=== PATIENT | female | born 1990 | race Caucasian/White ===

== ENCOUNTER 2016-10-30 07:02 | Day surgery (SDC) | payer MEDICAID ==
[2016-10-30] MEDS: Dextrose 5%-Lactated Ringers 1,000 ML IV SCH ×2 (07:59→11:01)
[2016-10-30] MEDS ORDERED: Glycopyrrolate 0.2 MG/ML 2 ML SYRINGE IVPUSH ONE (08:00)
[2016-10-30] MEDS ORDERED: Propofol 200 MG/20 ML SDV ONE (10:29)
[2016-10-30] MEDS ORDERED: fentaNYL 100 MCG/2 ML SDV ONE (10:29)
[2016-10-30] MEDS ORDERED: Midazolam 1 MG/ML 2 ML SDV ONE (10:29)
[2016-10-30] MEDS ORDERED: Pantoprazole 40 MG Vial IVPUSH ONE (10:50)
[2016-10-30 12:06] VITALS: BP 118/71
--- NOTE | 2016-10-31 10:52 | OR ---
DATE OF PROCEDURE: 10/30/2016 PREOPERATIVE DIAGNOSIS: Recent hematemesis. POSTOPERATIVE DIAGNOSIS: Recent hematemesis associated with ulcerated gastroesophageal reflux disease. OPERATIVE PROCEDURE: Upper GI endoscopy with: 1. Biopsy of esophagogastric junction. 2. Biopsies of antrum for CLOtest. ANESTHESIA: IV sedation. INDICATION FOR PROCEDURE: A 26-year-old female presenting last week with some episodes of hematemesis, started on omeprazole, has not had further hematemesis over the weekend. She continued to have some ongoing heartburn symptoms. She has a long history of heartburn symptoms as well as some intermittent bilious emesis. Plan is to proceed with an upper GI endoscopy with biopsies as indicated. Potential risks including bleeding and perforation were discussed, and the patient wishes to proceed. DETAILS OF PROCEDURE: The patient was taken to the operating room and placed in a left lateral decubitus position. IV sedation was administered, after which the upper GI endoscope was passed orally through the length of the esophagus into the stomach with retroflexion view of the fundus, thereafter through the pyloric channel and into the proximal duodenum. Findings included normal hypopharynx, larynx, upper esophageal sphincter, and esophageal body. At the EG junction, there was a small hiatal hernia with EG junction being essentially a wide open straight tube. With this, there were 3 linear ulcers, which were presently covered with fibrinous exudate. This areas were viable, simply rubbing the scope on the surface resulted in some oozing. There were no stricturing or gross evidence of neoplasia. The remainder of the stomach showed some very mild redness within the antrum, but otherwise no significant pathology and the pyloric channel and proximal duodenum were unremarkable at the level of the junction of the 3rd and 4th duodenal portions. At this point, biopsies were obtained from the antrum and sent for CLOtest for H. pylori. Multiple biopsies were then obtained from the esophagogastric junction, sent for histologic evaluation. No bleeding from the biopsy sites was seen, and the procedure then concluded. The patient was given some additional IV Protonix in the recovery room. We will see her back on this coming Sunday. Given her age, she may benefit from the surgical antireflux procedure, so as to avoid essentially a lifelong time problem requiring medical management. We will discuss these findings and operative options this coming Sunday. Carmelo Pagan MD /[id number]
== END 2016-10-30 12:25 | disposition home or self-care (01) ==
LOC: JP.SDS 07:02
PROVIDERS: ATTEND Surgery
DX: K22.10 Ulcer of esophagus without bleeding (principal); Z91.040 Latex allergy status; F17.210 Nicotine dependence, cigarettes, uncomplicated
CPT/HCPCS: 43239; 87081; C9113; J2250; J2704; J3010; J7042; 88305; 88312

== ENCOUNTER 2016-11-03 06:58 | Inpatient (IN) | payer MEDICAID ==
[2016-11-03] MEDS ORDERED: Neostigmine Methylsulfate 1 MG/ML 5 ML Syringe ONE (07:07)
[2016-11-03] MEDS ORDERED: Ondansetron 4 MG/2 ML SDV ONE (07:07)
[2016-11-03] MEDS ORDERED: Propofol 200 MG/20 ML SDV ONE (07:07)
[2016-11-03] MEDS ORDERED: Succinylcholine/Normal Saline 200 MG/10 ML Syringe ONE (07:07)
[2016-11-03] MEDS ORDERED: Rocuronium 50 MG/5 ML Vial ONE (07:07)
[2016-11-03] MEDS ORDERED: fentaNYL 250 MCG/5 ML SDV ONE ×3 (07:07→09:14)
[2016-11-03] MEDS ORDERED: Dexamethasone 4 MG/ML SDV ONE (07:07)
[2016-11-03] MEDS ORDERED: HYDROmorphone/Normal Saline 15 MG/30 ML PCA IV PRN (07:12)
[2016-11-03] MEDS ORDERED: Naloxone 0.4 MG/ML SDV IVPUSH PRN (07:12)
[2016-11-03] MEDS: Dextrose 5%-Lactated Ringers 1,000 ML IV SCH ×3 (07:52→16:26)
[2016-11-03] MEDS ORDERED: Albuterol/Ipratropium 3.0-0.5 MG/3 ML Neb Soln NEB ONE (08:30)
[2016-11-03] MEDS ORDERED: ceFAZolin 2 GM in Premix Bag 1 BAG IV ONE (08:30)
[2016-11-03] MEDS ORDERED: ceFAZolin 2 GM in Sodium Chloride 0.9% 50 ML IV ONE (08:30)
[2016-11-03] MEDS ORDERED: hydrOXYzine HCl 50 MG/ML SDV IM ONE (09:55)
[2016-11-03] MEDS ORDERED: Ondansetron 4 MG/2 ML SDV IVPUSH PRN (11:08)
[2016-11-03] MEDS ORDERED: ALPRAZolam 0.5 MG Tab PO PRN (11:12)
[2016-11-03] MEDS ORDERED: Cyclobenzaprine 10 MG Tab PO PRN (11:12)
[2016-11-03] MEDS ORDERED: Loratadine 10 MG Tab PO PRN (11:14)
[2016-11-03] MEDS ORDERED: Albuterol 8 GM Inhaler INH PRN (11:14)
[2016-11-03] MEDS ORDERED: Pantoprazole 40 MG Vial IV SCH (11:30)
[2016-11-03] MEDS: Metoclopramide 10 MG/2 ML SDV IVPUSH SCH ×2 (12:06→17:52)
[2016-11-03] MEDS: Naproxen 250 MG Tab PO SCH ×2 (12:06→22:38)
[2016-11-03] MEDS: ceFAZolin 2 GM in Sodium Chloride 0.9% 50 ML IV SCH (16:00)
[2016-11-04] MEDS: ceFAZolin 2 GM in Sodium Chloride 0.9% 50 ML IV SCH (00:16)
[2016-11-04] MEDS: Metoclopramide 10 MG/2 ML SDV IVPUSH SCH ×2 (00:16→05:51)
[2016-11-04] MEDS: Dextrose 5%-Lactated Ringers 1,000 ML IV SCH (05:54)
[2016-11-04] MEDS ORDERED: HYDROmorphone 2 MG Tab PO PRN (06:57)
[2016-11-04] MEDS ORDERED: Acetaminophen/oxyCODONE 325-5 MG Tab PO PRN (07:53)
[2016-11-04 08:08] VITALS: BP 105/56
[2016-11-04] MEDS: Naproxen 250 MG Tab PO SCH (08:38)
[2016-11-04] MEDS ORDERED: Enoxaparin 120 MG/0.8 ML Syringe SUBCUT ONE (12:36)
[2016-11-04] MEDS ORDERED: Sodium Chloride 0.9% 1,000 ML IV SCH (12:45)
--- NOTE | 2016-11-05 14:23 | DISCH ---
FINAL DIAGNOSES: 1. Gastroesophageal reflux disease refractory to medical management associated with large paraesophageal diaphragmatic hernia. 2. Mediastinal lipoma. 3. Attention-deficit hyperactivity disorder with anxiety. 4. Opioid dependence. OPERATIVE PROCEDURE: This was done on 11/03, laparoscopic Donnie fundoplication with repair of paraesophageal diaphragmatic hernia with mesh and excision of mediastinal lipoma. SUMMARY: This is a 26-year-old who is presenting with gastroesophageal reflux disease. This was associated with a complicated presentation including hematemesis, and earlier this week, was noted to have multiple esophageal ulcers. Given this and the patient's desire not to need long-term medication, the patient underwent a Donnie fundoplication which showed her to have a very large diaphragmatic hernia and repaired with augmentation with mesh along with excision of mediastinal lipoma. Postoperatively, she did well, taking in liquids without difficulty. She will be discharged home on her usual medication list plus Percocet 5/325 mg 1 to 2 tablets q.4 hours p.r.n. pain, #40. Should be following up with Dr. Pagan in [facility] on 11/15/2016. She is instructed to be on a full liquid diet until Sunday, November 17, and then progress to soft solids as tolerated.
--- NOTE | 2016-11-06 13:16 | OR ---
DATE OF PROCEDURE: 11/03/2016 PREOPERATIVE DIAGNOSIS: Gastroesophageal reflux disease refractory to medical management. POSTOPERATIVE DIAGNOSES: 1. Gastroesophageal reflux disease refractory to medical management associated with large paraesophageal diaphragmatic hernia. 2. Mediastinal lipoma. OPERATIVE PROCEDURE: 1. Laparoscopic Donnie fundoplication with repair of paraesophageal diaphragmatic hernia with mesh (51861). 2. Excision of mediastinal lipoma (63936). ANESTHESIA: General. AUTO RADIATOR SPECIALIST: Kassy Andino PA-C. INDICATION FOR PROCEDURE: This is a 26-year-old female presenting with some hematemesis. Upper endoscopy obtained earlier this week showed an active esophagitis with several linear ulcers and at that point covered with fibrinous exudate. This is present despite ongoing medical management. After discussion of the treatment options, plan is to proceed with a Donnie fundoplication. Potential risks including bleeding, infection, and injury to the surrounding area of possible problems with fundoplication such as dysphagia, gas-bloat syndrome, disorders in gastric emptying rate, as well as possibility of cardiopulmonary, septic, or hemorrhagic complications leading to were discussed, and the patient wishes to proceed. DETAILS OF PROCEDURE: The patient was taken to the operating room and after general endotracheal anesthesia was induced, was placed in a lithotomy position. Jauregui catheter was inserted, which was removed at the end of the procedure, and the abdomen was prepped and draped. At 15 cm inferior, 5 cm left of xiphoid process, transverse incision was made with peritoneal cavity under direct vision with Optiview trocar and inflated 15 mmHg pressure of CO2. Laparoscope was then reinserted. No underlying trocar insertion site injuries were seen. Following this, 4 additional trocars were placed across the upper mid abdomen. General exploration was undertaken. Upon elevation of the liver, the patient noted to have a large paraesophageal diaphragmatic hernia. This hernia extended paraesophageal component with it with prolapse of the stomach in a plane anterior to the course of the esophagus along with some omentum into the area anterior to the esophagus. The hernia was reduced at this point. The peritoneum at the edge of the diaphragm was incised to the right, then anterior and then to left of the EG junction. This was reflected downward. The esophagus was dissected away from the crura on each side and the retroesophageal window was constructed. Loretto drain was placed around and at that point the soft tissue attachments to the esophagus were taken down with Harmonic scalpel and delivered intraabdominal esophageal length of around 5 cm was accomplished without traction out the Loretto drain. The crural repair was accomplished posteriorly with a series of 0 Ethibond sutures reinforced with PTFE pledget. During course of the dissection, the mediastinal lipoma was encountered and excised to facilitate more adequate repair. Because of the size of the crural defect, Phasix mesh was used to augment the repair. This was cut such that it would lay across the crural repair posteriorly then along the edges of the esophagus on each side, then once this was cut and placed, it was then fixed in position with some titanium tacking screws. At this point, the omentum was then taken down from the greater curvature with Harmonic scalpel. This dissection then continued upward and divided in the short gastric vessels including the highest and posterior short gastric vessels. Once that area was well freed up, the fundus was retrieved through the retroesophageal window and the pump house engineer then placed a guidewire orally through the esophagus and into the stomach and over this, a 54-Pashto Savary dilator was positioned over the dilator and then a 3-stitch, 2 cm fundoplication was accomplished with 0 Ethibond sutures with reinforced PTFE pledgets. Each of these sutures included a bite of the underlying esophagus on each side of the fundoplication was then also then tacked up to the diaphragm with the same stitch pledget combination to help prevent it from slipping downward. At that point, the dilator and wire were removed and the fundoplication was inspected and found to be satisfactory and loose. No further problems were noted. Trocars removed. The peritoneal cavity is inflated. The fascia at the 12 mm site was closed with 0 Vicryl stitch and the skin with 6-0 Vicryl skin stitch. Physician marketing operations assistant, Kassy Andino, played an essential role in assisting in this case, helping to position the patient, retract structures as needed, as well as suturing and cutting sutures when indicated. Her presence improved patient safety and decreased operative time. Carmelo Pagan MD /[id number]
== END 2016-11-04 09:45 | disposition home or self-care (01) | DRG 327 ==
LOC: UNDOADMIN 06:58 → JP.MS 06:58 → JP.SDS 06:58 → EDSTATUS 10:00 → JP.2SS 10:30 → JP.MS 10:30
PROVIDERS: ADMIT Surgery; ATTEND Surgery
PROC: 0BUS4JZ (ICD-10-PCS; principal; 2016-11-03)
PROC: 0DV44ZZ Restriction of Esophagogastric Junction, Percutaneous Endoscopic Approach (ICD-10-PCS; principal; 2016-11-03)
PROC: 0WBC4ZX Excision of Mediastinum, Percutaneous Endoscopic Approach, Diagnostic (ICD-10-PCS; principal; 2016-11-03)
PROC: 0BUR4JZ (ICD-10-PCS; principal; 2016-11-03)
DX: K21.9 Gastro-esophageal reflux disease without esophagitis (principal); K92.0 Hematemesis; F11.20 Opioid dependence, uncomplicated; K44.9 Diaphragmatic hernia without obstruction or gangrene; D17.4 Benign lipomatous neoplasm of intrathoracic organs; F41.9 Anxiety disorder, unspecified; F17.210 Nicotine dependence, cigarettes, uncomplicated; Z71.51 Drug abuse counseling and surveillance of drug abuser
CPT/HCPCS: 36415; 80048; 85027; 88304; 94762; A9270-GY; C1781; C9113; J0690; J1100; J1170; J2405; J2704; J2765; J3010; J3410; J7042; J7050; J7620

== ENCOUNTER 2016-11-17 18:57 | Emergency (ER) | payer MEDICAID ==
--- NOTE | 2016-11-17 19:42 | EDM.PDOC ---
ED HPI GENERAL MEDICAL PROBLEM - General Chief Complaint: Gastrointestinal Problem Stated Complaint: STOMACH PAIN HAD GASTRO Time Seen by Provider: 11/17/16 19:37 Source of Information: Reports: Patient, Old records, RN notes reviewed History Limitations: Reports: No limitations - History of Present Illness INITIAL COMMENTS - FREE TEXT/NARRATIVE: 26-year-old female presents emergency department for a complaint of abdominal pain she is postop day 7 from a Donnie she is currently out of her current Percocet she has just been using Tylenol she started solid food today she states the pain was worse after solid food denies any nausea vomiting shortness of breath chest pain or fevers positive for flatus Upper abdomen Pain Score (Numeric/FACES): 5 - Related Data Allergies Allergy/AdvReac Type Severity Reaction Status Date / Time Latex, Natural Rubber Allergy Unknown Hives Verified 11/03/16 07:16 Home Meds: Home Meds Albuterol Sulfate [Albuterol Sulfate HFA] 1 - 2 puff IH Q4HR PRN 03/25/14 [ History] Albuterol [Proventil Neb Soln] 1 ampule NEB Q4HRRT PRN 03/25/14 [History] Acetaminophen [Tylenol Extra Strength] 1,000 mg PO QID PRN 02/26/16 [History] Omeprazole Magnesium [Prilosec Otc] 20 mg PO DAILY 11/03/16 [History] Ondansetron [IMW: Ondansetron ODT] 4 mg PO Q6H 11/03/16 [History] ALPRAZolam [Xanax] 0.5 mg PO TID PRN 11/04/16 [History] Naproxen [Naprosyn] 500 mg PO BID 11/04/16 [History] Past Medical History Respiratory History: Reports: Asthma Gastrointestinal History: Reports: GERD CAMPAIGN MANAGER History: Reports: 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 History: Reports: Fracture Neurological History: Reports: Concussion, Head trauma Psychiatric History: Reports: Anxiety, Bipolar, Depression Oncologic (Cancer) History: Reports: None - Infectious Disease History Infectious Disease History: Reports: Chicken pox - Past Surgical History HEENT Surgical History: Reports: Oral surgery Other HEENT Surgeries/Procedures: wisdom teeth GI Surgical History: Reports: Appendectomy, Donnie fundoplication, Other (see below) Other GI Surgeries/Procedures: esophageal diaphramatic hernia, excision of mediastinal lipoma Neurological Surgical History: Reports: Scoliosis 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 Surgical History: Reports: Shoulder surgery, Other (see below) Other 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 Surgeries/Procedures:: R shoulder suregery rotator cuff repair november 2014, chronic pain. left arm surgery 2 years ago, chronic pain Oncologic Surgical History: Reports: Biopsy of breast Social & Family History - Family History Family Medical History: Noncontributory HEENT: Reports: Other (see below) Other HEENT Family History: surgery for a "ear drum that blew" Cardiac: Reports: Hypertension Psychiatric: Reports: Anxiety, Depression, Emotional problems - Tobacco Use Smoking Status *Q: Current Every Day Smoker Years of Tobacco use: 12 Packs/Tins Daily: 0.5 Used Tobacco, but Quit: No Second Hand Smoke Exposure: No - Caffeine Use Caffeine Use: Reports: None - Alcohol Use Days Per Week of Alcohol Use: 4 Number of Drinks Per Day: 4 Total Drinks Per Week: 16 - Recreational Drug Use Recreational Drug Use: No Drug Use in Last 12 Months: Yes Recreational Drug Type: Reports: Marijuana/Hashish Recreational Drug Use Frequency: Weekly ED ROS GENERAL - Review of Systems Review Of Systems: See Below Constitutional: Reports: no symptoms HEENT: Reports: No symptoms Respiratory: Reports: No Symptoms Cardiovascular: Reports: No symptoms GI/Abdominal: Reports: Abdominal pain, Flatus. Denies: Diarrhea, Nausea, Vomiting : Reports: no symptoms 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: Reports: no symptoms ED EXAM, GENERAL - Physical Exam Exam: See Below Exam Limited By: No limitations General Appearance: alert, WD/WN, no apparent distress Eye Exam: bilateral eye: normal inspection Respiratory/Chest: no respiratory distress, lungs clear, normal breath sounds, no accessory muscle use Cardiovascular: regular rate, rhythm, no murmur GI/Abdominal: soft, tender (Round surgical scars but not out of the ordinary). No: distended, guarding, rigid, rebound Course - Vital Signs Last Recorded V/S: Last Vital Signs Temp 97.0 F 11/17/16 19:18 Pulse 105 H 11/17/16 19:18 Resp 14 11/17/16 19:18 BP 121/73 11/17/16 19:18 Pulse Ox 94 L 11/17/16 19:18 Departure - Departure Time of Disposition: 19:41 Disposition: Home, Self-Care 01 Condition: good Clinical Impression: Postoperative pain Forms: ED Department Discharge Additional Instructions: Use Percocet as needed to control postoperative pain, please followup with your surgeon next week, call or return to the ED with worsening of symptoms - Assessment/Plan Plan: Assessment Acuity = acute Site and laterality = postop abdominal pain postop day 8 Etiology = surgery Donnie fundoplication Manifestations = none Location of injury = home Lab values = none Plan I did offer to do further evaluation with blood work however she would just like to try additional pain medication follow up with her primary care provider next week if not better total number Percocet provided 10 Patient was in agreement with the plan all questions were answered, they were instructed to return to the emergency department or call for worsening symptoms. This note was dictated using [employer] voice recognition software please call with any questions.
[2016-11-17 19:49] VITALS: BP 121/73
== END 2016-11-17 20:02 | disposition home or self-care (01) ==
LOC: JP.ED 18:57
DX: G89.18 Other acute postprocedural pain (principal); R10.10 Upper abdominal pain, unspecified; J45.909 Unspecified asthma, uncomplicated; K21.9 Gastro-esophageal reflux disease without esophagitis; F17.210 Nicotine dependence, cigarettes, uncomplicated; Z90.89 Acquired absence of other organs; Z98.890 Other specified postprocedural states; Z79.899 Other long term (current) drug therapy; Z91.040 Latex allergy status
CPT/HCPCS: 99284

== ENCOUNTER 2016-12-03 14:50 | Emergency (ER) | payer MEDICAID ==
[2016-12-03 15:08] VITALS: BP 111/66
[2016-12-03] MEDS ORDERED: Diphtheria,Pertussis(Acell),Tetanus Vaccine 0.5 ML SDV IM ONE (16:03)
[2016-12-03] MEDS ORDERED: Cephalexin 250 MG Cap PO ONE (16:05)
--- NOTE | 2016-12-03 16:06 | EDM.PDOC ---
ED HPI GENERAL MEDICAL PROBLEM - General Chief Complaint: Lower Extremity Injury/Pain Stated Complaint: STEPPED ON A NAIL- LT FOOT Time Seen by Provider: 12/03/16 15:59 Source of Information: Reports: Patient History Limitations: Reports: No Limitations - History of Present Illness INITIAL COMMENTS - FREE TEXT/NARRATIVE: Stepped on a nail last night at her home. Nail went through her shoe into the bottom of her foot. Unsure of her last tetanus. Denies fever or chills today. Rates pain a 7. Onset: Sudden Onset Date: 12/03/16 Onset Time: 21:00 Location: Reports: Lower Extremity, Left Quality: Reports: Ache Severity: Mild Improves with: Reports: Medication Worsens with: Reports: None Context: Reports: Trauma Associated Symptoms: Reports: No Other Symptoms - Related Data Allergies Allergy/AdvReac Type Severity Reaction Status Date / Time Latex, Natural Rubber Allergy Unknown Hives Verified 12/03/16 14:59 Home Meds: Home Meds Albuterol Sulfate [Albuterol Sulfate HFA] 1 - 2 puff IH Q4HR PRN 03/25/14 [ History] Albuterol [Proventil Neb Soln] 1 ampule NEB Q4HRRT PRN 03/25/14 [History] Acetaminophen [Tylenol Extra Strength] 1,000 mg PO QID PRN 02/26/16 [History] Omeprazole Magnesium [Prilosec Otc] 20 mg PO DAILY 11/03/16 [History] Ondansetron [IMW: Ondansetron ODT] 4 mg PO Q6H 11/03/16 [History] ALPRAZolam [Xanax] 0.5 mg PO TID PRN 11/04/16 [History] Past Medical History Respiratory History: Reports: Asthma Gastrointestinal History: Reports: GERD 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 History: Reports: 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 History: Reports: Fracture Neurological History: Reports: Concussion, Head Trauma Psychiatric History: Reports: Anxiety, Bipolar, Depression Oncologic (Cancer) History: Reports: None - Infectious Disease History Infectious Disease History: Reports: Chicken Pox - Past Surgical History HEENT Surgical History: Reports: Oral Surgery GI Surgical History: Reports: Appendectomy, EGD, Donnie Fundoplication, Other ( See Below) 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 Surgical History: Reports: Shoulder Surgery, Other (See Below) Oncologic Surgical History: Reports: Biopsy of Breast Social & Family History - Family History Family Medical History: Noncontributory HEENT: Reports: Other (See Below) Other HEENT Family History: surgery for a "ear drum that blew" Cardiac: Reports: Hypertension Psychiatric: Reports: Anxiety, Depression, Emotional Problems - Tobacco Use Smoking Status *Q: Current Every Day Smoker Years of Tobacco use: 10 Packs/Tins Daily: 0.5 Used Tobacco, but Quit: No Second Hand Smoke Exposure: No - Caffeine Use Caffeine Use: Reports: None - Alcohol Use Days Per Week of Alcohol Use: 4 Number of Drinks Per Day: 4 Total Drinks Per Week: 16 - Recreational Drug Use Recreational Drug Use: No Drug Use in Last 12 Months: Yes Recreational Drug Type: Reports: Marijuana/Hashish Recreational Drug Use Frequency: Weekly Review of Systems - Review of Systems Review Of Systems: See Below Constitutional: Reports: No Symptoms 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: Reports: Foot Pain (left) Skin: Reports: Other (bottom of left foot with small puncture wound, tender to touch) Trauma Exam - Physical Exam Exam: See Below Exam Limited By: No Limitations General Appearance: Reports: Alert, WD/WN, No Apparent Distress Head: Reports: Atraumatic, Normocephalic Respiratory Exam: Reports: No Respiratory Distress, Lungs Clear, Normal Breath Sounds Cardiovascular: Reports: Normal Peripheral Pulses, Regular Rate, Rhythm, No Edema, No Gallop, No JVD, No Murmur, No Rub Extremities: Pain with Movement (left still tender with weight bearing.) Neurologic: Reports: demi chef II-XII nml As Tested, No Motor/Sensory Deficits, Alert , Normal Mood/Affect, Oriented x 3 Skin: Reports: Other (bottom of left foot with small puncture wound noted. Tender to touch. Mild erythema noted.) Course - Vital Signs Last Recorded V/S: Last Vital Signs Temp 97.7 F 12/03/16 15:06 Pulse 72 12/03/16 15:06 Resp 14 12/03/16 15:06 BP 111/66 12/03/16 15:06 Pulse Ox 96 12/03/16 15:06 Departure - Departure Time of Disposition: 16:06 Disposition: Home, Self-Care 01 Condition: good Clinical Impression: Puncture wound of foot, left - Discharge Information Instructions: Pain Medicine Instructions, [id number] Forms: ED Department Discharge Additional Instructions: Tdap given to boost tetanus today. Cephalexin 500mg QID to be taken x 7 days. First dose given in ER today. May use Epsom salt soak daily. Ibuprofen as needed for pain. Monitor for infection and worsening symptoms. Followup as needed. - Problem List & Annotations (1) Puncture wound of foot, left SNOMED Code(s): 04433810 Code(s): S91.332A - PUNCTURE WOUND WITHOUT FOREIGN BODY, LEFT FOOT, INIT ENCNTR Status: Acute Priority: Medium Current Visit: Yes Qualifiers: Encounter type: initial encounter Qualified Code(s): S91.332A - Puncture wound without foreign body, left foot, initial encounter
[2016-12-03] MEDS ORDERED: Ibuprofen 600 MG Tab PO ONE (16:12)
== END 2016-12-03 16:33 | disposition home or self-care (01) ==
LOC: JP.ED 14:50
DX: S91.332A Puncture wound without foreign body, left foot, initial encounter (principal); J45.909 Unspecified asthma, uncomplicated; K21.9 Gastro-esophageal reflux disease without esophagitis; F41.9 Anxiety disorder, unspecified; F17.210 Nicotine dependence, cigarettes, uncomplicated; F32.9 Major depressive disorder, single episode, unspecified; Z90.49 Acquired absence of other specified parts of digestive tract; Z98.890 Other specified postprocedural states; Z91.040 Latex allergy status; Z79.899 Other long term (current) drug therapy; W21.31XA Struck by shoe cleats, initial encounter
CPT/HCPCS: 90715; 99283; A9270; 90471

== ENCOUNTER 2016-12-10 19:14 | Emergency (ER) | payer MEDICAID ==
[2016-12-10 19:29] VITALS: BP 113/84
[2016-12-10] MEDS ORDERED: Acetaminophen/oxyCODONE 325-5 MG Tab PO ONE (21:12)
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
[2016-12-10] MEDS ORDERED: Naproxen 250 MG Tab PO ONE (22:28)
--- NOTE | 2016-12-12 10:40 | CR ---
Chest 2V HISTORY: No Clinical Info FINDINGS: Heart size within normal limits. Pulmonary vasculature within normal limits. No evidence f or focal consolidation or cardiopulmonary process. IMPRESSION: No radiographic evidence for acute cardiopulmonary process.
--- NOTE | 2016-12-12 11:03 | CR ---
No evidence for fracture. Small effusion or synovitis right knee.
== END 2016-12-10 22:58 | disposition home or self-care (01) ==
LOC: JP.ED 19:14
DX: M54.6 Pain in thoracic spine (principal); M25.561 Pain in right knee; J45.909 Unspecified asthma, uncomplicated; K21.9 Gastro-esophageal reflux disease without esophagitis; F41.9 Anxiety disorder, unspecified; F32.9 Major depressive disorder, single episode, unspecified; F31.9 Bipolar disorder, unspecified; F17.210 Nicotine dependence, cigarettes, uncomplicated; Z90.49 Acquired absence of other specified parts of digestive tract; Z98.890 Other specified postprocedural states; Z79.899 Other long term (current) drug therapy; Z91.040 Latex allergy status; Y04.8XXA Assault by other bodily force, initial encounter
CPT/HCPCS: 70450; 71020; 73562; 99285; A9270

== ENCOUNTER 2016-12-17 20:43 | Emergency (ER) | payer MEDICAID ==
[2016-12-17 20:59] VITALS: BP 108/65
[2016-12-17] MEDS ORDERED: Ketorolac 60 MG/2 ML SDV IM ONE (21:07)
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
[2016-12-17] MEDS ORDERED: Bacitracin Oint 1 GM U/D Packet TOP ONE (21:38)
== END 2016-12-17 21:55 | disposition home or self-care (01) ==
LOC: JP.ED 20:43
DX: T22.221A Burn of second degree of right elbow, initial encounter (principal); J45.909 Unspecified asthma, uncomplicated; K21.9 Gastro-esophageal reflux disease without esophagitis; F41.9 Anxiety disorder, unspecified; F32.9 Major depressive disorder, single episode, unspecified; F31.9 Bipolar disorder, unspecified; F17.210 Nicotine dependence, cigarettes, uncomplicated; Z90.49 Acquired absence of other specified parts of digestive tract; Z98.890 Other specified postprocedural states; Z79.899 Other long term (current) drug therapy; Z91.040 Latex allergy status; X12.XXXA Contact with other hot fluids, initial encounter
CPT/HCPCS: 96372; 99283; J1885

== ENCOUNTER 2016-12-24 19:47 | Emergency (ER) | payer MEDICAID ==
[2016-12-24 20:18] VITALS: BP 129/73
[2016-12-24] MEDS ORDERED: Silver Sulfadiazine 1% Crm 50 GM Tube TOP ONE (21:05)
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
== END 2016-12-24 21:46 | disposition home or self-care (01) ==
LOC: JP.ED 19:47
DX: T22.211A Burn of second degree of right forearm, initial encounter (principal); J45.909 Unspecified asthma, uncomplicated; K21.9 Gastro-esophageal reflux disease without esophagitis; F41.9 Anxiety disorder, unspecified; F31.9 Bipolar disorder, unspecified; Z90.49 Acquired absence of other specified parts of digestive tract; F17.210 Nicotine dependence, cigarettes, uncomplicated; Z91.040 Latex allergy status
CPT/HCPCS: 16020; 99283; A9270

== ENCOUNTER 2017-01-01 18:34 | Emergency (ER) | payer MEDICAID ==
[2017-01-01 20:19] VITALS: BP 136/62
[2017-01-01] MEDS ORDERED: Acetaminophen/HYDROcodone 325-5 MG Tab PO ONE (20:42)
[2017-01-01] MEDS ORDERED: Ondansetron 4 MG Tab.DIS PO ONE (20:42)
--- NOTE | 2017-01-01 20:53 | EDM.PDOC ---
ED HPI GENERAL MEDICAL PROBLEM - General Chief Complaint: General Stated Complaint: HIT HEAD Time Seen by Provider: 01/01/17 20:20 Source of Information: Reports: Patient History Limitations: Reports: No Limitations - History of Present Illness INITIAL COMMENTS - FREE TEXT/NARRATIVE: Patient presents to [facility] with complaints of fall from Playground swing. She states she was swinging up, fell back onto ground covered in wood chips. She states fall was 5 to 8 feet, landing on back, striking posterior head and coccyx. She states she is not sure of she had LOC or not. Onset: Today Location: Reports: Head, Back, Other (coccyx) Quality: Reports: Sharp, Throbbing Severity: Moderate Worsens with: Reports: Movement Associated Symptoms: Reports: Headaches, Other (Abrasions to upper back, ecchymosis to left inner arm. ). Denies: Confusion, Nausea/Vomiting Head Pain Score (Numeric/FACES): 5 - Related Data Allergies Allergy/AdvReac Type Severity Reaction Status Date / Time Latex, Natural Rubber Allergy Unknown Hives Verified 01/01/17 20:19 Home Meds: Home Meds Albuterol Sulfate [Albuterol Sulfate HFA] 1 - 2 puff IH Q4HR PRN 03/25/14 [ History] Albuterol [Proventil Neb Soln] 1 ampule NEB Q4HRRT PRN 03/25/14 [History] Acetaminophen [Tylenol Extra Strength] 1,000 mg PO QID PRN 02/26/16 [History] Ondansetron [IMW: Ondansetron ODT] 4 mg PO Q6H PRN 11/03/16 [History] ALPRAZolam [Xanax] 0.5 mg PO TID PRN 11/04/16 [History] Past Medical History Respiratory History: Reports: Asthma Gastrointestinal History: Reports: GERD 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: 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 History: Reports: Fracture, Other (See Below) Other 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 History: rotator cuff tear Neurological History: Reports: Concussion, Head Trauma Psychiatric History: Reports: Anxiety, Bipolar, Depression Oncologic (Cancer) History: Reports: None - Infectious Disease History Infectious Disease History: Reports: Chicken Pox - Past Surgical History HEENT Surgical History: Reports: Oral Surgery GI Surgical History: Reports: Appendectomy, EGD, Donnie Fundoplication 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 Surgical History: Reports: Shoulder Surgery Oncologic Surgical History: Reports: Biopsy of Breast Social & Family History - Family History Family Medical History: Noncontributory HEENT: Reports: Other (See Below) Other HEENT Family History: surgery for a "ear drum that blew" Cardiac: Reports: Hypertension Psychiatric: Reports: Anxiety, Depression, Emotional Problems - Tobacco Use Smoking Status *Q: Current Every Day Smoker Years of Tobacco use: 12 Packs/Tins Daily: 0.5 Used Tobacco, but Quit: No Second Hand Smoke Exposure: Yes - Caffeine Use Caffeine Use: Reports: Energy Drinks, Soda - Alcohol Use Days Per Week of Alcohol Use: 1 Number of Drinks Per Day: 2 Total Drinks Per Week: 2 - Recreational Drug Use Recreational Drug Use: No Drug Use in Last 12 Months: No Recreational Drug Type: Reports: Marijuana/Hashish Recreational Drug Use Frequency: Weekly ED ROS GENERAL - Review of Systems Review Of Systems: See Below Constitutional: Denies: Fever, Chills, Weakness HEENT: Denies: Dental Pain, Ear Discharge, Ear Pain, Eye Pain, Hearing Loss, Nosebleed, Nose Pain, Throat Pain, Vertigo, Vision Change Respiratory: Denies: Shortness of Breath, Wheezing, Cough Cardiovascular: Denies: Chest Pain, Dyspnea on Exertion, Lightheadedness, Palpitations, Syncope GI/Abdominal: Denies: Abdominal Pain, Nausea, Vomiting 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: Reports: Neck Pain Skin: Reports: Bruising, Other (abrasions to back, posterior neck. Bruising to left inner arm ) Neurological: Reports: Headache. Denies: Confusion, Dizziness, Numbness, Syncope, Tingling, Difficulty Walking, Weakness, Change in Speech Psychiatric: Reports: No Symptoms Hematologic/Lymphatic: Reports: No Symptoms Immunologic: Reports: No Symptoms ED EXAM, GENERAL - Physical Exam Exam: See Below Exam Limited By: No Limitations General Appearance: Alert, WD/WN, Mild Distress Eye Exam: Bilateral Eye: Normal Inspection, PERRL Ears: Normal External Exam, Normal Canal, Hearing Grossly Normal, Normal TMs Ear Exam: Bilateral Ear: Auricle Normal, Canal Normal, TM normal Nose: Normal Inspection, Normal Mucosa, No Blood Throat/Mouth: Normal Inspection, Normal Lips, Normal Teeth, Normal Gums, Normal Oropharynx, Normal Voice, No Airway Compromise Head: Other (large raised contusion to occipital area, tenderness with palpation. ) Neck: Supple, Tender Lateral, Tender Midline. No: Lymphadenopathy (R), Lymphadenopathy (L), Thyromegaly Respiratory/Chest: No Respiratory Distress, Lungs Clear, Normal Breath Sounds, No Accessory Muscle Use, Chest Non-Tender Cardiovascular: Normal Peripheral Pulses, Regular Rate, Rhythm, No Edema, No Gallop, No Murmur, No Rub Peripheral Pulses: 2+: Radial (L), Radial (R), Dorsalis Pedis (L), Dorsalis Pedis (R) GI/Abdominal: Normal Bowel Sounds, Soft, Non-Tender, No Organomegaly, No Distention, Pelvis Stable Back Exam: Normal Inspection, Full Range of Motion. No: CVA Tenderness (R), CVA Tenderness (L) Extremities: Normal Range of Motion, No Pedal Edema, Normal Capillary Refill, Other (ecchymosis to inner left upper and lower arm. Multiple superficial abrasions noted. ) Neurological: Alert, Oriented, CN II-XII Intact, Normal Cognition, Normal Gait, Normal Reflexes, No Motor/Sensory Deficits Psychiatric: Normal Affect, Normal Mood Skin Exam: Warm, Dry, Normal Color, No Rash, Ecchymosis, Other (Multiple superficial abrasions noted to upper back, posterior neck and left upper arm. ) Course - Vital Signs Last Recorded V/S: Last Vital Signs Temp 36.4 C 01/01/17 20:18 Pulse 71 01/01/17 20:18 Resp 16 01/01/17 20:18 BP 136/62 01/01/17 20:18 Pulse Ox 99 01/01/17 20:18 - Orders/Labs/Meds Orders: Active Orders 24 hr Category Date Time Status Cervical Spine wo Cont [CT] Stat Exams 01/01/17 20:43 Taken Head wo Cont [CT] Stat Exams 01/01/17 20:43 Taken Sacrum Coccyx Min 2V [CR] Stat Exams 01/01/17 20:46 Taken Labs: Laboratory Tests 01/01/17 Range/Units 22:31 Urine Color Yellow Urine Appearance Cloudy Urine pH 6.0 (4.5-8.0) Ur Specific [place] 1.020 (1.008-1.030) Urine Protein Negative (NEGATIVE) mg/dL Urine Glucose (UA) Normal (NEGATIVE) mg/dL Urine Ketones Negative (NEGATIVE) mg/dL Urine Occult Blood Negative (NEGATIVE) Urine Nitrite Negative (NEGATIVE) Urine Bilirubin Negative (NEGATIVE) Urine Urobilinogen Normal (NORMAL) mg/dL Ur Leukocyte Esterase Negative (NEGATIVE) Urine RBC 0-5 (0-5) Urine WBC 10-20 H (0-5) Ur Epithelial Cells Moderate Amorphous Sediment Few Urine Bacteria Few Urine Mucus Moderate Urine Other See note Urinalysis Comment Clue cells seen Meds: Medications Discontinued Medications Generic Name Dose Route Start Last Admin Trade Name Castro PRN Reason Stop Dose Admin Hydrocodone Bitart/Acetaminophen 1 tab 01/01/17 20:42 01/01/17 20:53 [place] 325-5 Mg PO 01/01/17 20:43 1 tab ONETIME ONE Administration Ondansetron HCl 4 mg 01/01/17 20:42 01/01/17 20:53 Zofran Odt PO 01/01/17 20:43 4 mg ONETIME ONE Administration - Radiology Interpretation Free Text/Narrative:: X-ray of coccyx shows no acute findings. CT Results Date: 01/01/17 (Ct negative for acute findings of head and neck. Patient does have scalp hematoma. ) - Re-Assessments/Exams Free Text/Narrative Re-Assessment/Exam: 01/01/17 22:39 Patient up ambulating without difficulty, reports pain has improved. Free Text/Narrative Re-Assessment/Exam: 01/01/17 22:[address]/imaging results. All her questions answered. Departure - Departure Time of Disposition: 22:46 Disposition: Home, Self-Care 01 Condition: Good Clinical Impression: Scalp hematoma, Concussion, Neck pain - Discharge Information Instructions: Concussion, Adult, [id number], Hematoma, [id number] Referrals: PCP,None [Primary Care Provider] - Forms: ED Department Discharge Additional Instructions: The imaging completed today of your head, neck and pelvis is negative for fracture or acute injury. You do have a hematoma of your scalp at the posterior part of your head. Watch for signs of concussion, keep yourself hydrated. You can use ice, heat, acetaminophen and ibuprofen for pain. You have also been provided with use of tramadol to take for break through pain. If your symptoms worsen, return or report to your primary provider. You can also try use of methocarbamol as directed. - My Orders Last 24 Hours: My Active Orders 01/01/17 20:43 Cervical Spine wo Cont [CT] Stat Head wo Cont [CT] Stat 01/01/17 20:46 Sacrum Coccyx Min 2V [CR] Stat - Assessment/Plan Last 24 Hours: My Active Orders 01/01/17 20:43 Cervical Spine wo Cont [CT] Stat Head wo Cont [CT] Stat 01/01/17 20:46 Sacrum Coccyx Min 2V [CR] Stat Assessment:: Scalp hematoma Neck pain/strain Plan: The imaging completed today head, neck and pelvis is negative for fracture or acute injury. Patient does have a hematoma of scalp at the posterior part of her head. She was advised to watch for signs of concussion, keep herself hydrated. She can use ice, heat, acetaminophen and ibuprofen for pain. She was also been provided with use of tramadol to take for break through pain. If symptoms worsen, return or report to primary provider. She was offered use of felxeril, she declined. Tea can also try use of methocarbamol as directed.
--- NOTE | 2017-01-02 08:16 | CR ---
Sacrum Coccyx Min 2V HISTORY: Pain to coccyx FINDINGS: Segments of the sacrum and coccyx appear intact and in satisfactory alignment. There is no fracture or dislocation. Bony architecture is preserved. Presacral soft tissues are normal. IMPRESSION: No acute abnormality of the sacrum or coccyx is identified.
== END 2017-01-01 23:03 | disposition home or self-care (01) ==
LOC: JP.ED 18:34
DX: S06.0X9A Concussion with loss of consciousness of unspecified duration, initial encounter (principal); S00.03XA Contusion of scalp, initial encounter; M54.2 Cervicalgia; Z91.040 Latex allergy status; J45.909 Unspecified asthma, uncomplicated; F41.9 Anxiety disorder, unspecified; F32.9 Major depressive disorder, single episode, unspecified; Z98.890 Other specified postprocedural states; Z79.899 Other long term (current) drug therapy; W19.XXXA Unspecified fall, initial encounter
CPT/HCPCS: 70450; 72125; 72220; 81001; 99284; A9270

== ENCOUNTER 2019-06-09 23:16 | Emergency (ER) | payer MEDICAID ==
[2019-06-10 00:04] VITALS: BP 133/103; PULSE 99
--- NOTE | 2019-06-10 00:14 | EDM.PDOC ---
ED HPI GENERAL MEDICAL PROBLEM - General Chief Complaint: Upper Extremity Injury/Pain Stated Complaint: BROKE FINGER Time Seen by Provider: 06/10/19 00:09 Source of Information: Reports: Patient, RN Notes Reviewed History Limitations: Reports: No Limitations - History of Present Illness INITIAL COMMENTS - FREE TEXT/NARRATIVE: 28-year-old female presents emergency department today complaint of pain in her pinky finger right hand she accidentally punched the wall yesterday afternoon, now she has difficulty straightening her finger Right Finger-Little Pain Score (Numeric/FACES): 5 - Related Data Allergies Allergy/AdvReac Type Severity Reaction Status Date / Time Latex, Natural Rubber Allergy Unknown Hives Verified 06/09/19 23:53 Home Meds: Home Meds Albuterol Sulfate [Albuterol Sulfate HFA] 1 - 2 puff IH Q4HR PRN 03/25/14 [ History] Albuterol [Proventil Neb Soln] 1 ampule NEB Q4HRRT PRN 03/25/14 [History] Ondansetron [IMW: Ondansetron ODT] 4 mg PO Q6H PRN 11/03/16 [History] Amoxicillin 1 tab PO BID 06/09/19 [History] Past Medical History HEENT History: Reports: Impaired Vision Cardiovascular History: Reports: Other (See Below) Other Cardiovascular History: palpitations Respiratory History: Reports: Asthma, Bronchitis, Recurrent Gastrointestinal History: Reports: GERD Genitourinary History: Reports: UTI, Recurrent 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: 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 History: Reports: Fracture, Other (See Below) Other 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 History: rotator cuff tear Neurological History: Reports: Concussion, Head Trauma Psychiatric History: Reports: Anxiety, Bipolar, Depression, Panic Attack Oncologic (Cancer) History: Reports: None - Infectious Disease History Infectious Disease History: Reports: Chicken Pox, Mononucleosis - Past Surgical History HEENT Surgical History: Reports: Oral Surgery GI Surgical History: Reports: Appendectomy, EGD, Donnie Fundoplication Female Surgical History: Reports: Breast Biopsy 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 Surgical History: Reports: Shoulder Surgery Oncologic Surgical History: Reports: Biopsy of Breast Social & Family History - Family History Family Medical History: Noncontributory HEENT: Reports: Other (See Below) Other HEENT Family History: surgery for a "ear drum that blew" Cardiac: Reports: Hypertension Psychiatric: Reports: Anxiety, Depression, Emotional Problems - Tobacco Use Smoking Status *Q: Current Every Day Smoker Years of Tobacco use: 15 Packs/Tins Daily: 0.5 - Caffeine Use Caffeine Use: Reports: Soda - Alcohol Use Date of Last Drink: 06/09/19 - Recreational Drug Use Recreational Drug Use: Yes Recreational Drug Type: Reports: Marijuana/Hashish Review of Systems - Review of Systems Review Of Systems: See Below Constitutional: Reports: No Symptoms 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: Reports: Hand Pain Skin: Reports: No Symptoms ED EXAM, GENERAL - Physical Exam Exam: See Below Free Text/Narrative:: Examination of the hand she does have an obvious deformity digit #5 right hand she is unable to straighten the finger pedal pulses +2 Course - Vital Signs Last Recorded V/S: Last Vital Signs Temp 97.7 F 06/10/19 00:04 Pulse 99 06/10/19 00:04 Resp 20 06/10/19 00:04 BP 133/103 H 06/10/19 00:04 Pulse Ox 98 06/10/19 00:04 Departure - Departure Time of Disposition: 00:49 Disposition: Home, Self-Care 01 Condition: Fair Clinical Impression: Boutonniere deformity of finger of right hand Fracture of phalanx of right hand, closed Qualifiers: Encounter type: initial encounter Finger: little finger Phalanx: distal Fracture alignment: nondisplaced Qualified Code(s): S62.666A - Nondisplaced fracture of distal phalanx of right little finger, initial encounter for closed fracture - Discharge Information Referrals: PCP,None [Primary Care Provider] - Forms: ED Department Discharge Additional Instructions: The orthopedic clinic will call you in the morning for an appointment time with orthopedic surgery continue to use the splint until reevaluated by orthopedics - Assessment/Plan Plan: Assessment Acuity = acute Site and laterality = nondisplaced phalanx fracture distal right hand digit #5 with boutonniere deformity Etiology = secondary to trauma Manifestations = none Location of injury = Home Lab values = x-ray describes fracture above Plan She is placed in a finger splint to straighten out the deformity consultation set up with orthopedics this week This note was dictated using [employer] voice recognition software please call with any questions on syntax or grammar.
--- NOTE | 2019-06-10 00:41 | CRLCR ---
INDICATION: Trauma. COMPARISON: None. FINDINGS/IMPRESSION: Right 5th finger, 3 views. Soft tissue swelling of the 5th finger, greatest over the PIP joint. Question of subtle cortical buckling along the anterior aspect of the base of the distal phalanx of the 5th finger as suggested on the lateral view, questionably representing a nondisplaced fracture; clinical correlation for point tenderness here is suggested. No other evidence for fracture. No dislocation. Dictated by Tristin Haynes MD @ 06/10/2019 12:38:02 AM Dictated by: Tristin Haynes MD @ 06/10/2019 00:38:42 (Electronically Signed)
== END 2019-06-10 01:05 | disposition home or self-care (01) ==
LOC: JP.ED 23:16
DX: M20.021 Boutonniere deformity of right finger(s) (principal); S62.666A Nondisplaced fracture of distal phalanx of right little finger, initial encounter for closed fracture; J45.909 Unspecified asthma, uncomplicated; F17.210 Nicotine dependence, cigarettes, uncomplicated; Z91.040 Latex allergy status; W22.09XA Striking against other stationary object, initial encounter
CPT/HCPCS: 73140-F9; 99283-25

== ENCOUNTER 2019-06-10 20:36 | Emergency (ER) | payer MEDICAID ==
[2019-06-10 20:48] VITALS: BP 147/103; PULSE 94
== END 2019-06-10 22:11 | disposition left against medical advice (07) ==
LOC: JP.ED 20:36
DX: Z53.21 Procedure and treatment not carried out due to patient leaving prior to being seen by health care provider (principal)

== ENCOUNTER 2019-07-26 20:49 | Emergency (ER) | payer MEDICAID ==
[2019-07-26 21:09] VITALS: BP 148/93; PULSE 99
--- NOTE | 2019-07-26 21:26 | EDM.PDOC ---
ED HPI GENERAL MEDICAL PROBLEM - General Chief Complaint: ENT Problem Stated Complaint: RIGHT SIDE UPPER TOOTH PAIN Time Seen by Provider: 07/26/19 21:10 Source of Information: Reports: Patient, Old Records, RN History Limitations: Reports: No Limitations - History of Present Illness INITIAL COMMENTS - FREE TEXT/NARRATIVE: 29 yo female here with some R facial swelling, R maxillary molar pain and drainage. No fever. Has an appt for this next Sunday to see her dentist. 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) right side dental pain Pain Score (Numeric/FACES): 7 - Related Data Allergies Allergy/AdvReac Type Severity Reaction Status Date / Time Latex, Natural Rubber Allergy Unknown Hives Verified 07/26/19 21:10 Home Meds: Home Meds Albuterol Sulfate [Albuterol Sulfate HFA] 1 - 2 puff IH Q4HR PRN 03/25/14 [ History] Albuterol [Proventil Neb Soln] 1 ampule NEB Q4HRRT PRN 03/25/14 [History] Ondansetron [IMW: Ondansetron ODT] 4 mg PO Q6H PRN 11/03/16 [History] Hydrocodone/Acetaminophen [[place] 5-325 Tablet] 1 each PO Q6HR PRN #28 tablet 12/01 [Rx] Past Medical History HEENT History: Reports: Impaired Vision Cardiovascular History: Reports: Other (See Below) Other Cardiovascular History: palpitations Respiratory History: Reports: Asthma, Bronchitis, Recurrent Gastrointestinal History: Reports: GERD Genitourinary History: Reports: UTI, Recurrent 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 R 5th digit injuryt ED Neurological History: Reports: Concussion, Head Trauma Psychiatric History: Reports: Anxiety, Depression, Panic Attack Oncologic (Cancer) History: Reports: None - Infectious Disease History Infectious Disease History: Reports: Chicken Pox - Past Surgical History HEENT Surgical History: Reports: Oral Surgery GI Surgical History: Reports: Appendectomy, EGD, Donnie Fundoplication Female Surgical History: Reports: Breast Biopsy 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 Surgical History: Reports: Shoulder Surgery Oncologic Surgical History: Reports: Biopsy of Breast Social & Family History - Family History Family Medical History: Noncontributory HEENT: Reports: Other (See Below) Other HEENT Family History: surgery for a "ear drum that blew" Cardiac: Reports: Hypertension Psychiatric: Reports: Anxiety, Depression, Emotional Problems - Tobacco Use Smoking Status *Q: Current Every Day Smoker Years of Tobacco use: 15 Packs/Tins Daily: 0.5 Second Hand Smoke Exposure: Yes - Caffeine Use Caffeine Use: Reports: Soda - Recreational Drug Use Recreational Drug Use: No ED ROS ENT - Review of Systems Review Of Systems: See Below Constitutional: Reports: No Symptoms HEENT: Reports: Dental Pain, Other (early R facial swelling) Respiratory: Reports: No Symptoms Skin: Reports: No Symptoms Neurological: Reports: No Symptoms ED EXAM, ENT - Physical Exam Exam: See Below Exam Limited By: No Limitations General Appearance: Alert, WD/WN, No Apparent Distress Eye Exam: Bilateral Eye: Normal Inspection Ears: Normal External Exam, Normal Canal, Hearing Grossly Normal, Normal TMs Nose: Normal Inspection, No Blood Mouth/Throat: Normal Inspection, Normal Lips, Normal Oropharynx, Dental Tenderness, Other (R maxillary molar is decayed with purulent drainage. ). No: Throat Pain, Throat Swelling, Tonsillar Erythema, Tonsillar Exudates, Tonsillar Swelling, Uvular Deviation, Uvular Edema Head: Atraumatic, Normocephalic Neck: Normal Inspection. No: Lymphadenopathy (R), Lymphadenopathy (L) Extremities: Normal Inspection Neurological: Alert, Oriented, CN II-XII Intact, Normal Cognition, No Motor/ Sensory Deficits Psychiatric: Normal Affect, Normal Mood Skin: Warm, Dry, Intact, Normal Color, No Rash Course - Vital Signs Last Recorded V/S: Last Vital Signs Temp 36.2 C 07/26/19 21:14 Pulse 99 07/26/19 21:14 Resp 16 07/26/19 21:14 BP 148/93 H 07/26/19 21:14 Pulse Ox 96 07/26/19 21:14 Departure - Departure Time of Disposition: 21:26 Disposition: Home, Self-Care 01 Condition: Fair Clinical Impression: Dental abscess - Discharge Information *PRESCRIPTION DRUG MONITORING PROGRAM REVIEWED*: No *COPY OF PRESCRIPTION DRUG MONITORING REPORT IN PATIENT JOSE RAMON: No Referrals: PCP,None [Primary Care Provider] - Additional Instructions: Take Penicillin every 6 hrs until gone. Take ibuprofen and/or acetaminophen as needed for pain relief. Substitute [place] for acetaminophen if needed. See your dentist as scheduled. Return if worse. Sepsis Event Note - Evaluation Sepsis Screening Result: No Definite Risk - Focused Exam Vital Signs: Vital Signs Temp Pulse Resp BP Pulse Ox 07/26/19 21:14 36.2 C 99 16 148/93 H 96 07/26/19 21:07 36.2 C 99 16 148/93 H 96 Date Exam was Performed: 07/26/19 Time Exam was Performed: 21:21
== END 2019-07-26 21:37 | disposition home or self-care (01) ==
LOC: JP.ED 20:49
DX: K04.7 Periapical abscess without sinus (principal); K02.9 Dental caries, unspecified; J45.909 Unspecified asthma, uncomplicated; Z90.49 Acquired absence of other specified parts of digestive tract; Z98.890 Other specified postprocedural states; F17.210 Nicotine dependence, cigarettes, uncomplicated; Z91.040 Latex allergy status
CPT/HCPCS: 99283